=== PATIENT | male | born 1995 ===

== ENCOUNTER 2018-05-15 06:17 | Day surgery (SDC) | payer OTHER ==
[~2018-05-15 06:17] MED LIST: Buffered Lidocaine 0.9% SYRIN* 5 ML/SYR SYRINGE INTRADERM ONE
[2018-05-15] MEDS ORDERED: ceFAZolin 2 GM PREMIX in ORs 2 GM/50 ML BAG IVPB ONE (06:40)
[2018-05-15] MEDS ORDERED: ROPIVACAINE 5 MG/ML 30 ML BTL (0.5%) ONE (07:21)
[2018-05-15] MEDS ORDERED: fentaNYL* 50 MCG/ML 2 ML VIAL (100 MCG VIAL) ONE (07:30)
[2018-05-15] MEDS ORDERED: Midazolam* 1 MG/ML 2 ML VIAL (2 MG) ONE ×3 (07:30→07:46)
[2018-05-15] MEDS ORDERED: Propofol* 10 MG/ML 20 ML BTL IV PUSH ONE (08:08)
[2018-05-15] MEDS ORDERED: Lidocaine 2% PF * 5 ML VIAL ONE (08:08)
[2018-05-15] MEDS ORDERED: Naloxone* 0.4 MG/ML 1 ML VIAL IV PRN (08:34)
[2018-05-15 11:11] VITALS: BP 108/46
--- NOTE | 2018-05-15 22:47 | OP ---
DATE OF OPERATION: 05/15/18 [facility] DATE OF : [birth year] SURGEON: Sly Messina MD GINNER HELPER: PERCY Andrade ANESTHESIOLOGIST: Dr. Short ANESTHESIA: Local MAC. PRE-OP DIAGNOSIS: Left right finger distal phalanx displaced fracture. POST-OP DIAGNOSIS: Left right finger distal phalanx displaced fracture. OPERATIVE PROCEDURE: Closed reduction and percutaneous pinning of left ring finger displaced distal phalanx fracture. INDICATIONS: Med is a 22-year-old student here in town. He fractured the left ring finger distal phalanx, was displaced. I talked to him about his options. I thought that finger will probably do a little bit better if we aligned the bone more anatomically with regards to any progressive nail plate disturbances and normal growth. We had discussed risks and benefits. He understands we will have to remove the pins at a later date. He elected to proceed. ESTIMATED BLOOD LOSS: 2 mL. COMPLICATIONS: None. FINDINGS: See above and below. DESCRIPTION OF PROCEDURE: Med was seen in the preoperative holding area. The correct site, side, and procedure were identified. We came back to the operating room where the arm was prepped and draped in the usual fashion. A digital block was performed. I placed a Tourni-Cot on the left ring finger. I then placed a 0.35 K-wire in the distal fragment of the distal phalanx. It was difficult to gain control of the finger tip, but ultimately I was able to compress between my index finger and thumb and reduce the fracture. I then passed one 0.35 K-wire down to the subchondral bone of the middle phalanx. I confirmed the alignment. I then placed a second 0.35 mm K-wire. There was the tinniest step-off dorsally but ultimately, I decided it would be impossible to improve upon that. Therefore, I went ahead and cleaned up the finger. The pins were clipped just below the skin. The tip of the finger was dressed and a clamshell Alumafoam splint was applied. The Tourni-Cot was taken off the finger. He was taken to the recovery room in stable condition. [id number] #: [id number] [facility]
--- NOTE | 2018-05-20 10:01 | RAD ---
CPT II Codes: G9500 INDICATION: Left ring finger distal phalanx fracture. Fluoroscopic services provided for referring physician. 1 minute and 27 seconds of fluoroscopy time was used. 4 spot images demonstrates internal fixation of the distal phalanx fracture of the left ring finger. IMPRESSION: Fluoroscopic services provided for referring physician for internal fixation of the left ring finger distal phalanx.
== END 2018-05-15 09:34 | disposition home or self-care (01) ==
LOC: OREAST 06:17
PROVIDERS: ATTEND Orthopaedic Surgery Hand Surgery
DX: S62.635A Displaced fracture of distal phalanx of left ring finger, initial encounter for closed fracture (principal); V80.010A Animal-rider injured by fall from or being thrown from horse in noncollision accident, initial encounter; Y93.52 Activity, horseback riding; Y92.9 Unspecified place or not applicable
CPT/HCPCS: 76000; C1776; J0690; J2250; J2704; J2795; J3010